=== PATIENT | male | born 1950 | race African-American/Black ===

== ENCOUNTER 2016-09-11 00:48 | Emergency (ER) | payer OTHER ==
[~2016-09-11] VITALS: Ht 190.5 cm; Wt 107.0 kg
[2016-09-11 00:50] VITALS: BP 146/84; PULSE 82; RESP 16; TEMP 98; O2SAT 96
[2016-09-11] MEDS ORDERED: VIRE300T2 PO (01:23)
[2016-09-11] MEDS ORDERED: AMLO10TA2 PO (01:23)
[2016-09-11] MEDS ORDERED: LATA0.002 EACH EYE (01:23)
[2016-09-11] MEDS ORDERED: ZOLP10TA3 PO (01:23)
[2016-09-11] MEDS ORDERED: DORZ2SOL EACH EYE (01:23)
[2016-09-11] MEDS ORDERED: METF500T PO (01:23)
--- NOTE | 2016-09-11 01:33 | PD ---
HPI Chief Complaint: Psychiatric Symptoms Time Seen by Provider: 01:26 Travel History International Travel<30 days: No Contact w/Intl Traveler<30days: No Traveled to known affect area: No History of Present Illness HPI 66-year-old black male presents to emergency department for evaluation of bipolar disorder. The patient is accompanied by his . The patient has a history of bipolar disorder, diabetes, hepatitis B with cirrhosis, hypertension , glaucoma. According to his he's been off his medications now for approximately 6 months. They had moved from [place] to [place]. He says really had just gotten a new primary care doctor last week and had his regular medications refilled. At that time he told his physician that he did not feel that he needed to have his psych meds refilled. This is contradictory to what the has to say. She states that he has had worsening mood swings and violent outbreaks. He is been ruminating on things that have happened in the past. He is become increasingly agitated. The felt this evening threatened by his violent outbursts. She was concerned that he may throw something. The patient denies making any violent or aggressive moves. He denies any suicidal or homicidal ideation. He states that he has thought about suicide in the past. Approximately 2 years ago he had contemplated jumping off a balcony. Patient denies any acute medical complaints. No toxic ingestions. He does smoke cigarettes. He denies alcohol or drugs. 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 [facility] Past Medical History Narrative Medical history of bipolar disorder, diabetes, hepatitis B with cirrhosis, hypertension , glaucoma. Cardiovascular Problems: Yes (HTN) Diabetes: Yes Tetanus Vaccination: < 5 Years Past Surgical History Narrative Surgical Right tib-fib fracture, left ankle fracture, cholecystectomy Social History Alcohol Use: No Tobacco Use: Yes Substance Use: No Allergies-Medications (Allergen,Severity, Reaction): Coded Allergies: No Known Allergies (Unverified , 09/11/16) Reported Meds & Prescriptions Reported Meds & Active Scripts Active Reported Abilify (Aripiprazole) 10 Mg Tab 10 Mg PO DAILY Clonazepam 1 Mg Tab 1 Mg PO BID Ambien (Zolpidem Tartrate) 10 Mg Tab 10 Mg PO HS PRN Prozac (Fluoxetine HCl) 10 Mg Cap 10 Mg PO DAILY Metformin (Metformin HCl) 500 Mg Tab 500 Mg PO BIDPC With meals Dorzolamide Opth Drops (Dorzolamide HCl) 2% Soln 1 Drop EACH EYE TID Latanoprost Opth Drops (Latanoprost) 0.005% Drops 1 Drop EACH EYE HS Refrigerate until opened. Amlodipine (Amlodipine Besylate) 10 Mg Tab 10 Mg PO DAILY Zolpidem (Zolpidem Tartrate) 10 Mg Tab 10 Mg PO HS PRN Viread (Tenofovir Disoproxil Fumarate) 300 Mg Tab 300 Mg PO DAILY Review of Systems Except as stated in HPI: all other systems reviewed are Neg Psychiatric: Positive: Depression, Mood Disorder, No: Anxiety, Suicidal Ideations, Disorder of Thought, Substance Abuse, Homicidal Ideation Physical Exam Narrative GENERAL: Well-nourished, well-developed patient. SKIN: Warm and dry. HEAD: Normocephalic and atraumatic. EYES: No scleral icterus. No injection or drainage. ENT: No nasal drainage noted. Mucous membranes pink. Airway patent. NECK: Supple, trachea midline. Moves head freely without obvious discomfort. CARDIOVASCULAR: Regular rate and rhythm without murmurs, gallops, or rubs. RESPIRATORY: Breath sounds equal bilaterally. No accessory muscle use. GASTROINTESTINAL: Abdomen soft, non-tender, nondistended. EXTREMITIES: No cyanosis or edema. BACK: Nontender without obvious deformity. No CVA tenderness. NEURO: Patient is alert and oriented. no sensorimotor deficits. Nonfocal. Normal speech. PSYCH: No delusions. No auditory or visual hallucinations. Data Data Last Documented VS Vital Signs Date Time Temp Pulse Resp B/P Pulse Ox O2 Delivery O2 Flow Rate FiO2 09/11/16 00:50 98.0 82 16 146/84 96 Room Air Orders Psych Screen (09/11/16 01:18) MDM Medical Decision Making Medical Screen Exam Complete: Yes Emergency Medical Condition: Yes Medical Record Reviewed: Yes Differential Diagnosis MDM: High Differential diagnoses: Schizophrenia, schizoaffective disorder, bipolar, anxiety, depression, adjustment reaction, mood disorder NOS, ODD, depressive disorder NOS, dementia, dementia with agitation, psychosis NOS, substance induced mood disorder, intermittent explosive disorder, Asperger syndrome, infection,electrolyte abnormality, malingering. Narrative Course Mental health screening discussed with the patient. Psychiatric screen ordered. The patient has been seen by the psych screener. He would like the patient to stay in the ER to be evaluated by the psychiatrist in the morning. Diagnosis Primary Impression: Bipolar 1 disorder Condition: Stable Francisco Zamudio Sep 11, 2016 01:32
[2016-09-11] MEDS ORDERED: AMBI10TA PO (02:33)
[2016-09-11] MEDS ORDERED: FLUO-1 PO (02:33)
[2016-09-11] MEDS ORDERED: CLON1TAB PO (02:33)
[2016-09-11] MEDS ORDERED: ARIP1TAB5 PO (02:34)
[2016-09-11 03:00] VITALS: BP 142/79; PULSE 80; RESP 18; O2SAT 96
--- NOTE | 2016-09-11 11:03 | PD ---
History of Present Illness Chief Complaint: Psychiatric Symptoms Time Seen by Provider: 10:30 Travel History International Travel<30 Days: No Contact w/Intl Traveler<30days: No Known affected area: No Legal Status Legal Status: Voluntary History of Present Illness: This is a 66-year-old male who presented voluntarily to the emergency department last night with complaints of depression, irritability, anger, frustration, anhedonia, social withdrawal, decreased energy, sleep disturbance, diminished self-esteem, etc. He has a multiyear history of bipolar disorder and has been off his medications for many months. Apparently there are grown children living in his home with he and his who have the patient feels have failed due to "launch". The [place] and he does not have a psychiatric provider or psychiatric medications to assist in stabilizing his mood. When he stopped taking his medicines months ago, he thought he could do without them because he is retired. Over the last 3-4 weeks he has felt increasingly depressed and aggravated and now wishes to go back on medicines. He does not use alcohol or drugs. He and his are willing to contract for safety. This physician spoke to patient and his about medications to improve his mood and referrals for further treatment. PFSH Past Medical History Medical History: Denies Significant Hx Cardiovascular Problems: Yes (HTN) Diabetes: Yes Patient Takes Glucophage: Yes (09/10/16) Tetanus Vaccination: < 5 Years Past Surgical History Cholecystectomy: Yes Psychiatric History Psychiatric History Hx Psychiatric Treatment: HX OF DEPRESSION, ANXIETY AND BIPOLAR D/O History of Inpatient Treatment: Yes Guns or firearms in home: No Social History Hx Alcohol Use: No Hx Tobacco Use: Yes Hx Substance Use: No Hx of Substance Use Treatment: No Allergies-Medications (Allergen,Severity, Reaction): Coded Allergies: No Known Allergies (Unverified , 09/11/16) Reported Meds & Prescriptions Reported Meds & Active Scripts Active Reported Abilify (Aripiprazole) 10 Mg Tab 10 Mg PO DAILY Clonazepam 1 Mg Tab 1 Mg PO BID Ambien (Zolpidem Tartrate) 10 Mg Tab 10 Mg PO HS PRN Prozac (Fluoxetine HCl) 10 Mg Cap 10 Mg PO DAILY Metformin (Metformin HCl) 500 Mg Tab 500 Mg PO BIDPC With meals Dorzolamide Opth Drops (Dorzolamide HCl) 2% Soln 1 Drop EACH EYE TID Latanoprost Opth Drops (Latanoprost) 0.005% Drops 1 Drop EACH EYE HS Refrigerate until opened. Amlodipine (Amlodipine Besylate) 10 Mg Tab 10 Mg PO DAILY Zolpidem (Zolpidem Tartrate) 10 Mg Tab 10 Mg PO HS PRN Viread (Tenofovir Disoproxil Fumarate) 300 Mg Tab 300 Mg PO DAILY Review of Systems ROS Limitations: Clinical Condition Except as stated in HPI: all other systems reviewed are Neg Exam Exam Limitations: Clinical Condition Alert: Yes [place]: Person, Place, Date, Situation Mood: Calm, Depressed Affect: Restricted Speech: Clear, Logical Eye Contact: Normal Memory Intact: Immediate, Recent, Remote Delusions: No Insight/Judgement Adequate. MDM Medical Decision Making Medical Record Reviewed: Yes Assessment/Plan Although the patient has a history of bipolar disorder with both manic and depressive episodes currently he has depressed. However, he is able and willing to contract for safety and does want outpatient assistance. He therefore does not meet criteria for [facility] act her inpatient hospitalization at this time. This physician is providing prescriptions for one-month supply of Lexapro and Lamictal per the patient's request, after informed consent was given. Also provided with a list of psychiatric providers in this area and the patient has insurance so that he may see them for further treatment. Patient is deemed safe to go home at this point but agrees to come back if his depression worsens. Orders Psych Screen (09/11/16 01:18) Results Vital Signs Date Time Temp Pulse Resp B/P Pulse Ox O2 Delivery O2 Flow Rate FiO2 09/11/16 03:00 80 18 142/79 96 Room Air 09/11/16 00:50 98.0 82 16 146/84 96 Room Air Diagnosis Primary Impression: Bipolar 1 disorder Condition: Stable Chandana Lemus MD Sep 11, 2016 11:03
[2016-09-11] MEDS ORDERED: LEXA10TA PO (11:04)
[2016-09-11] MEDS ORDERED: LAMO25 PO (11:05)
== END 2016-09-11 11:42 | disposition home or self-care (01) ==
LOC: NEPB 00:48 → NEPA 11:42
DX: F31.9 Bipolar disorder, unspecified (principal); K74.60 Unspecified cirrhosis of liver; I10 Essential (primary) hypertension; E11.9 Type 2 diabetes mellitus without complications; Z72.0 Tobacco use; Z79.84 Long term (current) use of oral hypoglycemic drugs
CPT/HCPCS: 99283